=== PATIENT | female | born 1950 | race Caucasian/White ===

== ENCOUNTER 2018-09-09 19:20 | Emergency (ER) | payer OTHER ==
[~2018-09-09] VITALS: Ht 172.7 cm; Wt 90.7 kg
[~2018-09-09 19:20] MED LIST: CARAFATE1 GM/10 ML PO; COUMADIN 5 MG TA5 M1 PO; CRESTOR20 MG PO; DILAUDID 4 MG TA4 M1 PO; DILAUDID4 MG PO; ENOXAPARIN120 MG/0.1 SUBQ; ENOXAPARIN80 MG/0.1 SUBQ; LISINOPRIL20 MG PO; MOVANTIK25 MG PO; MULTIVITAMINS PO; OMEPRAZOLE 20 M20 M1 PO; XANAX 0.5 MG0.5 MG PO
[2018-09-09] MEDS ORDERED: ZOFRAN ODT4 MG PO (19:29)
[2018-09-09 20:03] LABS: ABSOLUTE BASOPHILS 0.1 thou/uL (0.0-0.2); ABSOLUTE EOSINOPHILS 0.1 thou/uL (0.0-0.7); ABSOLUTE LYMPHOCYTES 0.9 thou/uL (0.8-5.3); ABSOLUTE MONOCYTES 0.3 thou/uL (0.0-1.2); ABSOLUTE NEUTROPHILS 7.5 thou/uL (1.6-8.1); BASOPHILS 0.8 %; EOSINOPHILS 1.6 %; HEMATOCRIT 40.4 % (37.0-47.0); HEMOGLOBIN 13.1 gm/dL (12.0-15.0); LYMPHOCYTES 10.5 %; MCH 28.1 pg (26.0-34.0); MCHC 32.3 g/dL (28.0-37.0); MCV 87.1 fL (80.0-100.0); MONOCYTES 3.8 %; MPV 8.1 fl. (7.2-11.1); NUCLEATED RBCS 0 /100WBC; PLATELET COUNT* 294 thou/uL (150-400); POLYS 83.3 %; RBC 4.64 mil/uL (4.20-5.00); RDW-CV 13.6 % (10.5-14.5)
[2018-09-09 20:14] LABS: APTT 30.8 Seconds (25.0-31.3); INR 1.5; PROTIME 14.9 Seconds (9.20-11.50)
[2018-09-09 20:25] LABS: CALCIUM 9.9 mg/dL (8.5-10.1); CREATININE 0.9 mg/dL (0.6-1.3); POTASSIUM 4.4 mmol/L (3.5-5.1)
[2018-09-09 20:29] LABS: ALBUMIN 3.2 g/dL (3.4-5.0); TOTAL BILIRUBIN 0.4 mg/dL (<0.1-1.0); TOTAL PROTEIN 6.9 g/dL (6.4-8.2); TROPONIN-I LEVEL 0.1 ng/mL (<0.06)
[2018-09-09 21:29] LABS: URINE BILIRUBIN NEGATIVE (Negative); URINE BLOOD TRACE (Negative); URINE CLARITY CLEAR; URINE COLOR YELLOW; URINE GLUCOSE-RANDOM NEGATIVE (Negative); URINE KETONES 1+ (Negative); URINE LEUKOCYTES-REFLEX NEGATIVE (Negative); URINE NITRITE-REFLEX NEGATIVE (Negative); URINE PROTEIN NEGATIVE (Negative); URINE UROBILINOGEN 0.2 E.U./dl (0.2-1.0)
[2018-09-09 22:15] VITALS: BP 147/63
--- NOTE | 2018-09-10 09:48 | EKG ---
[place] [address] ELECTROCARDIOGRAM REPORT Name: TYRONE WEINER [place] Room: [facility]#: [id number] Admission: 09/09/18 Attend Phys: Discharge: 09/09/18 Date of : 50 Report #: [id number] THIS REPORT FOR: //name// [facility] ED Test Date: 2018-09-09 Test Time: 19:43:40 Pat Name: TYRONE WEINER Department: Room: Gender: F [employer] Developer: IVY : 1950 Requested By: Trixie Ace Order Number: [id number] MD: Julio C Mcmahan Measurements Intervals [place] Rate: 68 P: 41 SD: 148 QRS: 37 QRSD: 82 T: 56 QT: 392 QTc: 417 Interpretive Statements Sinus rhythm No previous ECG available for comparison Electronically Signed On 09-10-2018 9:48:31 PRODUCT DEVELOPMENT ASSISTANT by Julio C Mcmahan [email or web address] <ELECTRONICALLY SIGNED> By: Julio C Mcmahan MD, [facility] 09/10/18 0948 194 42 Julio C Mcmahan MD, FACC /EPI
== END 2018-09-09 22:11 | disposition short-term general hospital (02) ==
LOC: M.ERS 19:20
PROVIDERS: Physician Assistant
DX: I16.1 Hypertensive emergency (principal); R79.89 Other specified abnormal findings of blood chemistry; R10.84 Generalized abdominal pain; R07.9 Chest pain, unspecified; I10 Essential (primary) hypertension; E78.5 Hyperlipidemia, unspecified; M54.9 Dorsalgia, unspecified; G89.29 Other chronic pain; K21.9 Gastro-esophageal reflux disease without esophagitis; Z90.49 Acquired absence of other specified parts of digestive tract; Z90.710 Acquired absence of both cervix and uterus; Z96.652 Presence of left artificial knee joint; Z88.0 Allergy status to penicillin; Z88.5 Allergy status to narcotic agent; Z91.041 Radiographic dye allergy status